=== PATIENT | female | born 1960 | race Two or more races ===

== ENCOUNTER 2019-09-13 12:47 | Inpatient (IN) | payer MEDICAID ==
[2019-09-13] VITALS (7 sets, daily range): BP systolic 105–132; BP diastolic 55–76
[~2019-09-13] VITALS: Ht 162.6 cm; Wt 74.8 kg
[~2019-09-13 12:47] MED LIST: MECLIZINE HCL25 MG ORAL; MYLANTA MAXIMU355 ML PO; OMEPRAZOLE20 M2 ORAL; ONDANSETRON ODT4 MG BC
--- NOTE | 2019-09-13 13:01 | NUR ---
ED Nurse Note: PT FROM HOME CAME IN DUE TO FEVER 102.6 F ART HOME WITH ABD PAIN, EARACHE AND SORE THROAT X 2 DAYS. AAO X4, AMBULATORY , ABLE TO SPEAK IN FULL SENTENCES WITH NO RESPIRATORY DISTRESS. HR 130 IN TRIAGE.
[2019-09-13] MEDS ORDERED: Ketorolac 30mg Inj IV ONE (13:15)
[2019-09-13] MEDS ORDERED: Dexamethasone 4mg/ml vial IVP ONE (13:15)
[2019-09-13] MEDS ORDERED: Omnipaque-300 100ml vial INJ ONE (13:15)
--- NOTE | 2019-09-13 13:23 | Emergency Room Report ---
History of Present Illness General Chief Complaint: Fever Source: Patient (Anaya Alvarez DO) Present Illness HPI Patient presents with complaints of sore throat fever Upon arrival is found to be tachycardic and febrile Patient appears to have been here about a month ago with some complaints of dizziness she reports that she still has dizziness at times She also complains of increased pain with swallowing Denies any change in voice denies any vomiting or diarrhea Denies any visual changes Denies any recent trauma (Anaya Alvarez DO) Allergies: Coded Allergies: No Known Allergies (Unverified , 08/24/19) Patient History Past Medical History: see triage record Reviewed Nursing Documentation: PMH: Agreed; PSxH: Agreed (Anaya Alvarez DO) Nursing Documentation-PMH Past Medical History: No Stated History Hx Gastrointestinal Problems: Yes - H. PYLORI INFECTION (Anaya Alvarez DO) Review of Systems All Other Systems: negative except mentioned in HPI (Anaya Alvarez DO) Physical Exam Vital Signs Date Time Temp Pulse Resp B/P (MAP) Pulse Ox O2 Delivery O2 Flow Rate FiO2 09/13/19 12:51 102.6 130 20 123/66 (85) 98 Room Air Sp02 EP Interpretation: reviewed, normal General Appearance: well appearing, no apparent distress Head: normocephalic, atraumatic Eyes: bilateral eye PERRL, bilateral eye EOMI ENT: hearing grossly normal, pharyngeal erythema Neck: full range of motion, supple Respiratory: lungs clear, no respiratory distress, no retraction Cardiovascular #1: tachycardia Gastrointestinal: non tender, soft Genitourinary: no CVA tenderness Musculoskeletal: normal inspection Neurologic: alert, oriented x3 Psychiatric: normal inspection Skin: no rash Lymphatic: normal inspection (Anaya Alvarez DO) Medical Decision Making Diagnostic Impression: Primary Impression: Sepsis Additional Impressions: Fever Pharyngitis ER Course Multiple differentials and consideration including but not limited to retropharyngeal abscess Peritonsillar abscess, pharyngitis Mastoiditis CT imaging does not show any acute process patient was Initially tachycardic has elevated white blood cell count has improved however still uncomfortable and therefore will require further inpatient care Labs Test 09/13/19 13:25 White Blood Count 16.0 K/UL (4.8-10.8) Red Blood Count 4.35 M/UL (4.20-5.40) Hemoglobin 13.4 G/DL (12.0-16.0) Hematocrit 37.9 % (37.0-47.0) Mean Corpuscular Volume 87 FL (80-99) Mean Corpuscular Hemoglobin 30.9 PG (27.0-31.0) Mean Corpuscular Hemoglobin Concent 35.5 G/DL (32.0-36.0) Red Cell Distribution Width 11.1 % (11.6-14.8) Platelet Count 184 K/UL (150-450) Mean Platelet Volume 7.3 FL (6.5-10.1) Neutrophils (%) (Auto) % (45.0-75.0) Lymphocytes (%) (Auto) % (20.0-45.0) Monocytes (%) (Auto) % (1.0-10.0) Eosinophils (%) (Auto) % (0.0-3.0) Basophils (%) (Auto) % (0.0-2.0) Sodium Level 139 MMOL/L (136-145) Potassium Level 3.4 MMOL/L (3.5-5.1) Chloride Level 101 MMOL/L (98-107) Carbon Dioxide Level 24 MMOL/L (21-32) Anion Gap 14 mmol/L (5-15) Blood Urea Nitrogen 13 mg/dL (7-18) Creatinine 0.8 MG/DL (0.55-1.30) Estimat Glomerular Filtration Rate > 60 mL/min (>60) Glucose Level 140 MG/DL (74-106) Calcium Level 8.7 MG/DL (8.5-10.1) (Anaya Alvarez DO) Rhythm Strip Diag. Results EP Interpretation: yes Rate: 110 Rhythm: no PVC's, no ectopy, other - Sinus tach (Anaya Alvaerz DO) Chest X-Ray Diagnostic Results Chest X-Ray Diagnostic Results : Chest X-Ray Ordered: Yes # of Views/Limited/Complete: 1 View Indication: Chest Pain EP Interpretation: Yes Interpretation: no consolidation, no effusion, no pneumothorax Impression: No acute disease Electronically Signed by: Anaya Alvarez DO (Anaya Alvarez DO) CT/MRI/US Diagnostic Results CT/MRI/US Diagnostic Results : Impression CT neckImpression: Tonsillar swelling. No evidence of abscess (Anaya Alvarez DO) Last Vital Signs Date Time Temp Pulse Resp B/P (MAP) Pulse Ox O2 Delivery O2 Flow Rate FiO2 09/13/19 12:51 102.6 130 20 123/66 (85) 98 Room Air Status: improved (Anaya Alvarez DO) Reevaluation Time: 17:25 Reevaluation Impression Assumed care of the patient from the previous provider approximately 1430 Briefly, this is a 59-year-old female coming in for evaluation of throat pain and swelling, fever. She was tachycardic on arrival into the 130s and remained slightly tachycardic now. At the time of signout we are awaiting CT scan to evaluate for peritonsillar and retropharyngeal abscess. No evidence of abscess was identified. Radiologist did no tonsillar swelling and some maxillary sinus disease. White count is elevated with a neutrophil predominance. Patient received Decadron and Toradol. Will give antibiotics and admit the patient for further care (Ayush Drake MD) Disposition: ADMITTED INPATIENT Condition: Serious Scripts Cefuroxime Axetil* (CEFUROXIME*) 250 Mg Tablet 250 MG PO Q12HR for 10 Days, #20 TAB Prov: Smith Mcgregor MD 09/16/19 Anaya Alvarez DO Sep 13, 2019 13:23 Ayush Drake MD Sep 13, 2019 17:27
--- NOTE | 2019-09-13 13:40 | NUR ---
ED Nurse Note: PT TAKEN TO CT AND STABLE.
[2019-09-13 13:51] LABS: HEMATOCRIT 37.9 % (37.0-47.0); HEMOGLOBIN 13.4 G/DL (12.0-16.0); MEAN CORPUSCULAR VOLUME 87 FL (80-99); PLATELET COUNT 184 K/UL (150-450); RED BLOOD COUNT 4.35 M/UL (4.20-5.40); RED CELL DISTRIBUTION WIDTH 11.1 % (11.6-14.8)
[2019-09-13 13:59] LABS: ANION GAP 14 mmol/L (5-15); BLOOD UREA NITROGEN 13 mg/dL (7-18); CALCIUM 8.7 MG/DL (8.5-10.1); CARBON DIOXIDE 24 MMOL/L (21-32); CHLORIDE 101 MMOL/L (98-107); CREATININE 0.8 MG/DL (0.55-1.30); POTASSIUM 3.4 MMOL/L (3.5-5.1); SODIUM 139 MMOL/L (136-145)
--- NOTE | 2019-09-13 14:08 | Diagnostic Imaging Report ---
Indications: Vertigo Technique: Spiral acquisitions obtained through the brain. Angled axial and coronal 5 x 5 mm slices were reconstructed. Total dose length product 1179 mGycm. CTDI vol(s) 53 mGy. Dose reduction achieved using automated exposure control Comparison: None. Findings: No acute intracranial hemorrhage or edema. No mass effect nor midline shift. Normal white differentiation. Visualized orbits and sinuses are unremarkable. The mastoids are clear. The calvarium is intact. Pantoja-white differentiation is normal. The visualized orbits are unremarkable. There is right maxillary sinus mucosal disease. Impression: Negative. No evidence of acute intracranial bleed or mass effect. Minimal right maxillary sinus disease incidentally noted. The CT scanner at [facility] is accredited by the [employer] and the scans are performed using protocols designed to limit radiation exposure to as low as reasonably achievable to attain images of sufficient resolution adequate for diagnostic evaluation.
[2019-09-13 14:13] LABS: ALANINE AMINOTRANSFERASE 30 U/L (12-78); ALBUMIN 3.4 G/DL (3.4-5.0); ALBUMIN/GLOBULIN RATIO 0.9 (1.0-2.7); ALKALINE PHOSPHATASE 90 U/L (46-116); ASPARTATE AMINO TRANSFERASE 32 U/L (15-37); BILIRUBIN,TOTAL 0.7 MG/DL (0.2-1.0); CKMB < 0.5 NG/ML (0.0-3.6); CREATINE KINASE 61 U/L (26-308)
--- NOTE | 2019-09-13 15:01 | Diagnostic Imaging Report ---
Indication: Chest Technique: One view of the chest Comparison: none Findings: The heart size is upper limits of normal. The aorta is tortuous. The lungs and pleural spaces are clear. Impression: No acute process
--- NOTE | 2019-09-13 15:15 | Diagnostic Imaging Report ---
Indication: Ear pain, swelling, vertigo, sore throat and fever Technique: IV administration nonionic contrast. Spiral acquisitions obtained through the neck.. Multiplanar reconstructions were generated. Total dose length product 261 mGycm. CTDIvol(s) 7 mGy. Dose reduction achieved using automated exposure control Comparison: none Findings: There is symmetric bilateral hypertrophy of the tonsillar pillars. There is mild prominence of the adenoids. No focal fluid collection to suggest abscess. No prevertebral soft tissue swelling. Other than the tonsillar abnormality, otherwise unremarkable nasopharynx, oropharynx, hypopharynx, and larynx. The trachea and upper lungs are unremarkable. No significant swelling and subcutaneous fat. There is minimal right maxillary sinus mucosal thickening. The sinuses are otherwise clear. No cervical mass or adenopathy. The salivary glands are unremarkable. Visualized intracranial structures are unremarkable. The bones are unremarkable. There is evidence of prior multiple tooth extractions. The existing dentition is intact. The vascular structures are unremarkable. The included lung apices are clear Impression: Tonsillar swelling. No evidence of abscess Incidental finding minimal right maxillary sinus disease The CT scans at [facility] are performed using protocols designed to limit radiation exposure to as low as reasonably achievable to attain images of sufficient resolution adequate for diagnostic evaluation.
--- NOTE | 2019-09-13 17:18 | NUR ---
ED Nurse Note: PT SLEEPING ON GURNEY WITH NO DISTRESS. SINUS TACH ON POWER STATION OPERATOR AT 87 HR.
[2019-09-13] MEDS ORDERED: Piperacillin/Tazobactam 3.375 GM in NS 110 ML IVPB ONE (19:00)
--- NOTE | 2019-09-13 19:17 | NUR ---
HAND-OFF: Report given to MANDIE SANCHEZ.
--- NOTE | 2019-09-13 19:17 | NUR ---
ED Nurse Note: Pt resting in bed, VSS, no s/s of distress noted. Medications administered, pt tolerated well. no adverse reactions
[2019-09-13] MEDS ORDERED: Albuterol/Ipratropium 3ml neb HHN PRN (20:45)
[2019-09-13] MEDS ORDERED: Miralax 17gm pkt ORAL PRN (20:45)
[2019-09-13] MEDS ORDERED: Nitroglycerin Subl 0.4mg tab SL PRN (20:45)
--- NOTE | 2019-09-13 21:30 | NUR ---
ED Nurse Note: Pt resting in bed, no s/s of distress noted, vss. Pt has and son at bedside. awaiting transfer
[2019-09-13] MEDS: Heparin 5000 units/ml inj SUBQ SCH (23:18)
--- NOTE | 2019-09-13 23:45 | NUR ---
ED Nurse Note: Pt resting in bed, vss, no s/s of distress noted. Pts and son no longer at bedside
[2019-09-14] VITALS (9 sets, daily range): BP systolic 101–121; BP diastolic 50–76
[2019-09-14] MEDS ORDERED: Vancomycin 1 GM in D5W 275 ML IV SCH (00:30)
[2019-09-14] MEDS: Cefepime HCl 2 GM in D5W 110 ML IV SCH ×2 (01:29→14:06)
--- NOTE | 2019-09-14 01:29 | NUR ---
ED Nurse Note: medications administered, pt tolerated well. no s/s of distress noted. Pt sleeping
[2019-09-14] MEDS ORDERED: Vancomycin 1.5gm x1 (Pts>70kg) IVPB SCH ×2 (03:00)
[2019-09-14 03:21] LABS: APPEARANCE,URINE CLEAR; BILIRUBIN, URINE NEGATIVE (NEGATIVE); COLOR,URINE PALE YELLOW; GLUCOSE, URINE (UA) NEGATIVE (NEGATIVE); HEMATOCRIT 36.4 % (37.0-47.0); HEMOGLOBIN 13.1 G/DL (12.0-16.0); KETONES,URINE 2+ (NEGATIVE); LEUKOCYTE ESTERASE ,URINE NEGATIVE (NEGATIVE); MEAN CORPUSCULAR VOLUME 86 FL (80-99); NITRITE,URINE NEGATIVE (NEGATIVE); PH,URINE 5 (4.5-8.0); PLATELET COUNT 165 K/UL (150-450); PROTEIN,URINE 1+ (NEGATIVE); RED BLOOD COUNT 4.21 M/UL (4.20-5.40); RED CELL DISTRIBUTION WIDTH 10.8 % (11.6-14.8); UROBILINOGEN,URINE NORMAL MG/DL (0.0-1.0); WHITE BLOOD COUNT 18.7 K/UL (4.8-10.8)
--- NOTE | 2019-09-14 03:24 | NUR ---
ED Nurse Note: all medications administered, no s/s of distress noted. no adverse reactions. pt tolerated well. pt repeat bloodwork and urine sent to lab
[2019-09-14 03:37] LABS: ALANINE AMINOTRANSFERASE 25 U/L (12-78); ALBUMIN 2.7 G/DL (3.4-5.0); ALBUMIN/GLOBULIN RATIO 0.6 (1.0-2.7); ALKALINE PHOSPHATASE 82 U/L (46-116); ANION GAP 9 mmol/L (5-15); ASPARTATE AMINO TRANSFERASE 29 U/L (15-37); BILIRUBIN,TOTAL 0.4 MG/DL (0.2-1.0); BLOOD UREA NITROGEN 13 mg/dL (7-18); CALCIUM 8.6 MG/DL (8.5-10.1); CARBON DIOXIDE 25 MMOL/L (21-32); CHLORIDE 105 MMOL/L (98-107); CREATININE 0.7 MG/DL (0.55-1.30); POTASSIUM 3.6 MMOL/L (3.5-5.1); SODIUM 139 MMOL/L (136-145)
--- NOTE | 2019-09-14 04:30 | NUR ---
ED Nurse Note: xray at bedside
--- NOTE | 2019-09-14 05:45 | NUR ---
ED Nurse Note: pts at bedside
--- NOTE | 2019-09-14 05:53 | NUR ---
ED Nurse Note: Pt sleeping in bed; VSS no s/s of distress noted.
--- NOTE | 2019-09-14 07:14 | NUR ---
ED Nurse Note: Report given to Brandin Neff
--- NOTE | 2019-09-14 07:40 | NUR ---
ED Nurse Note: Received pt on bed, awake, AOX4, able to verbalize her needs and follow commands. Pt's VSS, on RA, NAD, denies pain at this time.
[2019-09-14] MEDS: Heparin 5000 units/ml inj SUBQ SCH ×2 (08:59→20:58)
--- NOTE | 2019-09-14 11:45 | NUR ---
ED Nurse Note: pt. is awake and alert. no s/s of acute distress noted at this time. pt. is smiling and stated she is ok. continuous cardiac monitoring maintained
--- NOTE | 2019-09-14 13:30 | NUR ---
ED Nurse Note: Pt verbalized need to urinate, able to ambulate with steady gait, assisted by daughter going to restroom; NAD.
--- NOTE | 2019-09-14 14:00 | NUR ---
ED Nurse Note: Pt's VSS, on RA, NAD; daughter on bedside.
[2019-09-14] MEDS ORDERED: [UNRECOGNIZED DRUG - OTHER] IVPB SCH (15:00)
[2019-09-14] MEDS ORDERED: VANCOMYCIN IVPB SCH (15:00)
--- NOTE | 2019-09-14 15:50 | NUR ---
ED Nurse Note: Called pharmacy; will rescheduled [facility]. Reported situation to charge nurse.
--- NOTE | 2019-09-14 16:29 | Diagnostic Imaging Report ---
Indication: Shortness of breath Technique: One view of the chest Comparison: 09/13/2019 Findings: No acute infiltrates, effusions, or congestion. Tortuous ectatic aorta. Normal heart size. Upper mediastinum unremarkable. No significant change Impression: No acute process.
--- NOTE | 2019-09-14 17:05 | NUR ---
TRANSFER TO FLOOR: Patient transferred to Telemetry as ordered, per Dr. Huang. Report given to Kandi SANCHEZ. Belongings given to receiving nurse. Family and or S/O informed of transfer.
--- NOTE | 2019-09-14 17:20 | NUR ---
NURSE NOTES: Received patient from Aishwarya Isaacs. Belongings review. Plan of care discussed, verbalized understanding. IV lines are intact, Patient is alert and oriented x 4. Patient is not on distress at this time. Safety is on place, call light within reach, bed placed on low position. Will continue to monitor.
--- NOTE | 2019-09-14 18:42 | History & Physical ---
History and Physical History & Physicial Dictated for Int Med-DR Huang no. [id number] Smith Mcgregor MD Sep 14, 2019 18:42
--- NOTE | 2019-09-14 19:21 | NUR ---
NURSE NOTES: RECEIVED PATIENT RESTING IN BED, NO COMPLAINTS OF PAIN AT THIS TIME. FALL PRECAUTIONS IN PLACE: CALL LIGHT AND BEDSIDE TABLE WITHIN REACH, BED IN LOW POSITION AND BED ALARM ON. FAMILY AT BEDSIDE. PLAN OF CARE REVIEWED.
--- NOTE | 2019-09-14 19:45 | History and Physical Report ---
DATE OF ADMISSION: 09/13/2019 CHIEF COMPLAINT: The patient is a 59-year-old female, who presents with a chief complaint of fever, chills, and sore throat. HISTORY OF PRESENT ILLNESS: Began on Thursday, September 12, 2019. The patient began to experience fevers and chills. The patient also began to have a sore throat. The patient complains of bilateral ear congestion. The patient also had some dizziness. The patient states she was admitted to [facility] in July of 2019 for vertigo, however this medical record is not available. The patient presented to [place] emergency room. The patient was found to have fevers to 102.[address] scan of the neck revealed tonsillitis. The patient is admitted with fever, chills, and tonsillitis. PAST MEDICAL HISTORY: Significant for, 1. Gastritis. 2. Helicobacter pylori positive, which was treated in the past. PAST SURGICAL HISTORY: The patient denies. REVIEW OF SYSTEMS: CONSTITUTIONAL: The patient denies weight loss or weight gain. The patient complains of fevers and chills as above. HEENT: The patient complains of throat pain as above. The patient complains of ear congestion as above. CARDIOVASCULAR: The patient denies palpitations or chest pain. CHEST: The patient denies wheeze or shortness of breath. ABDOMINAL: The patient denies nausea, vomiting, diarrhea, or constipation. GENITOURINARY: The patient denies dysuria or increased frequency of urination. NEUROMUSCULAR: The patient denies seizures or generalized weakness. CURRENT MEDICATIONS: 1. Meclizine 25 mg one tablet p.o. 3 times daily p.r.n. 2. Omeprazole 20 mg p.o. daily. ALLERGIES: No known drug allergies. SOCIAL HISTORY: The patient is and lives with her . 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 The patient denies tobacco or alcohol use. PHYSICAL EXAMINATION: VITAL SIGNS: Temperature max 102.6 degrees Fahrenheit, pulse 100 to 130, respiratory rate 20, and blood pressure 123/66. GENERAL: The patient is a well-developed and well-nourished female, in no apparent distress. HEENT: Eyes, pupils are equal and responsive to light and accommodation. Extraocular movements are intact. NECK: Supple without lymphadenopathy. CHEST: Lungs are clear to auscultation bilaterally without wheezes or rales. CARDIOVASCULAR: Regular rhythm and rate. S1 and S2 are normal without murmurs, rubs, or gallops. ABDOMEN: Soft, nontender, and nondistended. Positive bowel sounds. No evidence of hepatosplenomegaly. Currently, no rebound or guarding noted. EXTREMITIES: Negative for clubbing, cyanosis, or edema. RECTAL/GENITAL: Not performed. NEUROLOGIC: Cranial nerves II to XII are grossly intact without focal deficits. Motor strength is 5/5 bilaterally. Deep tendon reflexes are 2+ plantar. LABORATORY STUDIES: An influenza swab was negative for influenza A and B. WBC 16.0, hemoglobin 13.4, hematocrit 37.9, and platelets 184,000. Sodium 139, potassium 3.4, chloride 101, CO2 24, BUN 13, creatinine 0.8, and glucose 140. A CT scan of the neck was reported as tonsillar swelling, otherwise no acute disease. ASSESSMENT: This is a 59-year-old female. 1. Fever. 2. Pharyngitis. 3. Tonsillitis. 4. History of gastritis. 5. Vertigo. TREATMENT: 1. Fever/pharyngitis/tonsillitis. A throat culture is pending. An influenza swab was negative as above. The patient has been started empirically on vancomycin and cefepime. Await results of throat swab. 2. Gastritis. The patient is status post treatment for Helicobacter pylori. 3. Vertigo. Continue meclizine as above. Smtih Mcgregor M.D. DR: HELENE JOB#: [id number] CC:
[2019-09-15] VITALS: BP 123/67
[2019-09-15] MEDS: Cefepime HCl 2 GM in D5W 110 ML IV SCH ×2 (01:40→13:22)
[2019-09-15] MEDS: Vancomycin 1.25gm/NS Premix IVPB SCH ×2 (02:42→15:16)
--- NOTE | 2019-09-15 07:20 | NUR ---
HAND-OFF: Report given to Sreedhar GOODE RN. PATIENT RESTING IN BED, NO SIGNS OF DISTRESS NOTED.
--- NOTE | 2019-09-15 07:51 | NUR ---
NURSE NOTES: Received patient from Brandin Stinson. Patient is awake resting comfortably in bed. Family sitting at bedside. Patient has no complain of pain or discomfort at this time. Left forearm peripheral IV CDI. Fall precautions in place. call senior within patients reach. will follow.
[2019-09-15 08:00] VITALS: BP 119/71
[2019-09-15] MEDS: Heparin 5000 units/ml inj SUBQ SCH ×2 (08:47→21:00)
[2019-09-15 09:24] LABS: BASOPHILS % (AUTO) 0.4 % (0.0-2.0); EOSINOPHILS % (AUTO) 0.2 % (0.0-3.0); HEMATOCRIT 35.5 % (37.0-47.0); HEMOGLOBIN 12.3 G/DL (12.0-16.0); LYMPHOCYTES % (AUTO) 22.9 % (20.0-45.0); MEAN CORPUSCULAR VOLUME 89 FL (80-99); MONOCYTES % (AUTO) 6.6 % (1.0-10.0); PLATELET COUNT 165 K/UL (150-450); RED BLOOD COUNT 4.01 M/UL (4.20-5.40); RED CELL DISTRIBUTION WIDTH 11.2 % (11.6-14.8); WHITE BLOOD COUNT 12.9 K/UL (4.8-10.8)
[2019-09-15 09:37] LABS: ANION GAP 8 mmol/L (5-15); BLOOD UREA NITROGEN 14 mg/dL (7-18); CALCIUM 8.7 MG/DL (8.5-10.1); CARBON DIOXIDE 27 MMOL/L (21-32); CHLORIDE 110 MMOL/L (98-107); CREATININE 0.7 MG/DL (0.55-1.30); POTASSIUM 3.5 MMOL/L (3.5-5.1); SODIUM 145 MMOL/L (136-145)
[2019-09-15 12:00] VITALS: BP 113/66
[2019-09-15] MEDS ORDERED: Tubing IV Secondary IV ONE (15:21)
[2019-09-15 16:00] VITALS: BP 114/76
--- NOTE | 2019-09-15 16:27 | Internal Med Progress Note ---
Subjective Date of Service: Sep 15, 2019 Physician Name Smith Mcgregor Attending Physician Isidro Huang MD Current Medications Medications (Trade) Dose Ordered Sig/Ramy Route PRN Reason Start Time Stop Time Status Last Admin Dose Admin Acetaminophen (Tylenol) 650 mg Q4H PRN ORAL T>100.5 09/13/19 20:45 10/13/19 20:44 Albuterol/ Ipratropium (Albuterol/ Ipratropium) 3 ml Q4H PRN HHN Shortness of Breath 09/13/19 20:45 09/18/19 20:44 Cefepime HCl 2 gm/ Dextrose 110 ml @ 220 mls/hr Q12H IV 09/14/19 02:00 09/21/19 01:59 09/15/19 13:22 Heparin Sodium (Porcine) (Heparin 5000 units/ml) 5,000 units EVERY 12 HOURS SUBQ 09/13/19 21:00 10/13/19 20:59 09/15/19 08:47 Nitroglycerin (Ntg) 0.4 mg Q5MIN X 3 DOSES PRN SL Prn Chest Pain 09/13/19 20:45 10/13/19 20:44 Ondansetron HCl (Zofran) 4 mg Q6H PRN IVP Nausea & Vomiting 09/13/19 20:45 10/13/19 20:44 09/13/19 23:34 Polyethylene Glycol (Miralax) 17 gm DAILYPRN PRN ORAL Constipation 09/13/19 20:45 10/13/19 20:44 Temazepam (Restoril) 15 mg HSPRN PRN ORAL Insomnia 09/13/19 21:00 09/20/19 20:59 Vancomycin HCl (Vanco rx to dose) 1 ea DAILY PRN MISC Per rx protocol 09/14/19 01:30 10/14/19 01:29 Vancomycin/Sodium Chloride 275 ml @ 183.333 mls/hr Q12HR@0300,1500 IVPB 09/15/19 03:00 09/20/19 02:59 09/15/19 15:16 Allergies: Coded Allergies: No Known Allergies (Unverified , 08/24/19) ROS Limited/Unobtainable: No Constitutional: Reports: no symptoms HEENT: Reports: throat pain Cardiovascular: Reports: no symptoms Respiratory: Reports: no symptoms Gastrointestinal/Abdominal: Reports: no symptoms Genitourinary: Reports: no symptoms Neurologic/Psychiatric: Reports: no symptoms Subjective 59 YO F admitted with sore throat and fever. Now tonsillitis. Cover for Int David-DR Huang Objective Last Vital Signs Date Time Temp Pulse Resp B/P (MAP) Pulse Ox O2 Delivery O2 Flow Rate FiO2 09/15/19 12:00 68 09/15/19 12:00 96.7 18 113/66 (82) 96 09/15/19 09:00 Room Air Laboratory Tests Test 09/15/19 07:37 09/15/19 14:05 White Blood Count 12.9 K/UL (4.8-10.8) H Red Blood Count 4.01 M/UL (4.20-5.40) L Hemoglobin 12.3 G/DL (12.0-16.0) Hematocrit 35.5 % (37.0-47.0) L Mean Corpuscular Volume 89 FL (80-99) Mean Corpuscular Hemoglobin 30.7 PG (27.0-31.0) Mean Corpuscular Hemoglobin Concent 34.7 G/DL (32.0-36.0) Red Cell Distribution Width 11.2 % (11.6-14.8) L Platelet Count 165 K/UL (150-450) Mean Platelet Volume 7.7 FL (6.5-10.1) Neutrophils (%) (Auto) 70.0 % (45.0-75.0) Lymphocytes (%) (Auto) 22.9 % (20.0-45.0) Monocytes (%) (Auto) 6.6 % (1.0-10.0) Eosinophils (%) (Auto) 0.2 % (0.0-3.0) Basophils (%) (Auto) 0.4 % (0.0-2.0) Sodium Level 145 MMOL/L (136-145) Potassium Level 3.5 MMOL/L (3.5-5.1) Chloride Level 110 MMOL/L (98-107) H Carbon Dioxide Level 27 MMOL/L (21-32) Anion Gap 8 mmol/L (5-15) Blood Urea Nitrogen 14 mg/dL (7-18) Creatinine 0.7 MG/DL (0.55-1.30) Estimat Glomerular Filtration Rate > 60 mL/min (>60) Glucose Level 110 MG/DL (74-106) #H Calcium Level 8.7 MG/DL (8.5-10.1) Vancomycin Level Trough 15.0 ug/mL (5.0-12.0) H Microbiology Date/Time Source Procedure Growth Status 09/13/19 13:25 Blood Blood Culture - Preliminary NO GROWTH AFTER 24 HOURS Resulted 09/13/19 13:00 Blood Blood Culture - Preliminary NO GROWTH AFTER 24 HOURS Resulted 09/13/19 14:00 Nasal Nares - Final Complete 09/13/19 14:00 Nasal Nares - Final Complete 09/14/19 03:11 Indwelling Cath Urine Culture - Preliminary NO GROWTH AFTER 24 HOURS Resulted Intake and Output 09/14/19 09/15/19 19:00 07:00 Intake Total 110 ml 505.000 ml Balance 110 ml 505.000 ml Intake Oral 120 ml IV Total 110 ml 385.000 ml # Voids 1 2 Objective PHYSICAL EXAMINATION: GENERAL: The patient is a well-developed and well-nourished female, in no apparent distress. HEENT: Eyes, pupils are equal and responsive to light and accommodation. Extraocular movements are intact. NECK: Supple without lymphadenopathy. CHEST: Lungs are clear to auscultation bilaterally without wheezes or rales. CARDIOVASCULAR: Regular rhythm and rate. S1 and S2 are normal without murmurs, rubs, or gallops. ABDOMEN: Soft, nontender, and nondistended. Positive bowel sounds. No evidence of hepatosplenomegaly. Currently, no rebound or guarding noted. EXTREMITIES: Negative for clubbing, cyanosis, or edema. RECTAL/GENITAL: Not performed. NEUROLOGIC: Cranial nerves II to XII are grossly intact without focal deficits. Motor strength is 5/5 bilaterally. Deep tendon reflexes are 2+ plantar. Assessment/Plan Assessment/Plan ASSESSMENT: This is a 59-year-old female. 1. Fever. 2. Pharyngitis. 3. Tonsillitis. 4. History of gastritis. 5. Vertigo. TREATMENT: 1. Fever/pharyngitis/tonsillitis. A throat culture is pending. An influenza swab was negative as above. The patient has been started empirically on vancomycin and cefepime. Await results of throat swab. 2. Gastritis. The patient is status post treatment for Helicobacter pylori. 3. Vertigo. Continue meclizine as above. Smith Mcgregor MD Sep 15, 2019 16:27
--- NOTE | 2019-09-15 19:02 | NUR ---
HAND-OFF: Report given to Brandin Suresh. Plan of care endorsed.
--- NOTE | 2019-09-15 19:30 | NUR ---
NURSE NOTES: Receive report from DANIEL Fernandez. Patient is in bed, awake, alert, and responsive. Breathing regular and unlabored with no s/s of SOB noted at this time. Patient is primarily Icelandic speaking, but is able to make needs known. Family is at bedside. Patient denies any pain or discomfort at this time. IV access is on the L hand, 22G, patent, intact, and saline locked. Bed remains in the lowest position, breaks engaged. and call light is within reach at all times. All other needs attended to, patient remains stable, will continue to monitor.
[2019-09-15 20:00] VITALS: BP 122/69
[2019-09-16] VITALS: BP 118/74
[2019-09-16] MEDS: Cefepime HCl 2 GM in D5W 110 ML IV SCH (01:38)
[2019-09-16] MEDS: Vancomycin 1.25gm/NS Premix IVPB SCH (03:00)
[2019-09-16 04:00] VITALS: BP 134/83
--- NOTE | 2019-09-16 06:58 | NUR ---
HAND-OFF: Report given to DANIEL Fernandez. Patient in stable condition.
--- NOTE | 2019-09-16 07:11 | NUR ---
NURSE NOTES: Received patient from Brandin Suresh. Patient is sleeping comfortably in bed. No signs and symptoms of distress. Fall precautions in place. Call senior within patients reach. will follow.
[2019-09-16 08:00] VITALS: BP 121/70
[2019-09-16] MEDS: Heparin 5000 units/ml inj SUBQ SCH (08:41)
[2019-09-16 08:45] LABS: BASOPHILS % (AUTO) 0.9 % (0.0-2.0); EOSINOPHILS % (AUTO) 1.7 % (0.0-3.0); HEMATOCRIT 33.5 % (37.0-47.0); HEMOGLOBIN 11.8 G/DL (12.0-16.0); LYMPHOCYTES % (AUTO) 40.6 % (20.0-45.0); MEAN CORPUSCULAR VOLUME 88 FL (80-99); MONOCYTES % (AUTO) 9.6 % (1.0-10.0); NEUTROPHILS % (AUTO) 47.3 % (45.0-75.0); PLATELET COUNT 164 K/UL (150-450); RED BLOOD COUNT 3.83 M/UL (4.20-5.40); RED CELL DISTRIBUTION WIDTH 10.8 % (11.6-14.8); WHITE BLOOD COUNT 7.2 K/UL (4.8-10.8)
[2019-09-16 08:58] LABS: ANION GAP 12 mmol/L (5-15); BLOOD UREA NITROGEN 9 mg/dL (7-18); CALCIUM 8.6 MG/DL (8.5-10.1); CARBON DIOXIDE 23 MMOL/L (21-32); CHLORIDE 108 MMOL/L (98-107); CREATININE 0.7 MG/DL (0.55-1.30); POTASSIUM 3.4 MMOL/L (3.5-5.1); SODIUM 143 MMOL/L (136-145)
--- NOTE | 2019-09-16 09:22 | NUR ---
NURSE NOTES: Message left to Doctor Sal re: potassium level of 3.4. Awaiting response. Will follow.
[2019-09-16 11:59] VITALS: BP 117/57
--- NOTE | 2019-09-16 13:59 | Internal Med Progress Note ---
Subjective Date of Service: Sep 16, 2019 Physician Name Smith Mcgregor Attending Physician Isidro Huang MD Current Medications Medications (Trade) Dose Ordered Sig/Ramy Route PRN Reason Start Time Stop Time Status Last Admin Dose Admin Acetaminophen (Tylenol) 650 mg Q4H PRN ORAL T>100.5 09/13/19 20:45 10/13/19 20:44 09/15/19 20:58 Albuterol/ Ipratropium (Albuterol/ Ipratropium) 3 ml Q4H PRN HHN Shortness of Breath 09/13/19 20:45 09/18/19 20:44 Cefepime HCl 2 gm/ Dextrose 110 ml @ 220 mls/hr Q12H IV 09/14/19 02:00 09/21/19 01:59 09/16/19 01:38 Heparin Sodium (Porcine) (Heparin 5000 units/ml) 5,000 units EVERY 12 HOURS SUBQ 09/13/19 21:00 10/13/19 20:59 09/16/19 08:41 Nitroglycerin (Ntg) 0.4 mg Q5MIN X 3 DOSES PRN SL Prn Chest Pain 09/13/19 20:45 10/13/19 20:44 Ondansetron HCl (Zofran) 4 mg Q6H PRN IVP Nausea & Vomiting 09/13/19 20:45 10/13/19 20:44 09/13/19 23:34 Polyethylene Glycol (Miralax) 17 gm DAILYPRN PRN ORAL Constipation 09/13/19 20:45 10/13/19 20:44 Temazepam (Restoril) 15 mg HSPRN PRN ORAL Insomnia 09/13/19 21:00 09/20/19 20:59 Vancomycin HCl (Vanco rx to dose) 1 ea DAILY PRN MISC Per rx protocol 09/14/19 01:30 10/14/19 01:29 Vancomycin/Sodium Chloride 275 ml @ 183.333 mls/hr Q12HR@0300,1500 IVPB 09/15/19 03:00 09/20/19 02:59 09/16/19 03:00 Allergies: Coded Allergies: No Known Allergies (Unverified , 08/24/19) ROS Limited/Unobtainable: No Constitutional: Reports: no symptoms HEENT: Reports: no symptoms Cardiovascular: Reports: no symptoms Respiratory: Reports: no symptoms Gastrointestinal/Abdominal: Reports: no symptoms Genitourinary: Reports: no symptoms Neurologic/Psychiatric: Reports: no symptoms Subjective 59 YO F admitted with sore throat and fever. Now tonsillitis. Cover for Int David-DR Huang Objective Last Vital Signs Date Time Temp Pulse Resp B/P (MAP) Pulse Ox O2 Delivery O2 Flow Rate FiO2 09/16/19 12:00 61 09/16/19 11:59 97.9 18 117/57 (77) 97 09/16/19 09:00 Room Air Laboratory Tests Test 09/15/19 14:05 09/16/19 05:52 Vancomycin Level Trough 15.0 ug/mL (5.0-12.0) H White Blood Count 7.2 K/UL (4.8-10.8) Red Blood Count 3.83 M/UL (4.20-5.40) L Hemoglobin 11.8 G/DL (12.0-16.0) L Hematocrit 33.5 % (37.0-47.0) L Mean Corpuscular Volume 88 FL (80-99) Mean Corpuscular Hemoglobin 30.7 PG (27.0-31.0) Mean Corpuscular Hemoglobin Concent 35.0 G/DL (32.0-36.0) Red Cell Distribution Width 10.8 % (11.6-14.8) L Platelet Count 164 K/UL (150-450) Mean Platelet Volume 7.3 FL (6.5-10.1) Neutrophils (%) (Auto) 47.3 % (45.0-75.0) Lymphocytes (%) (Auto) 40.6 % (20.0-45.0) Monocytes (%) (Auto) 9.6 % (1.0-10.0) Eosinophils (%) (Auto) 1.7 % (0.0-3.0) Basophils (%) (Auto) 0.9 % (0.0-2.0) Sodium Level 143 MMOL/L (136-145) Potassium Level 3.4 MMOL/L (3.5-5.1) L Chloride Level 108 MMOL/L (98-107) H Carbon Dioxide Level 23 MMOL/L (21-32) Anion Gap 12 mmol/L (5-15) Blood Urea Nitrogen 9 mg/dL (7-18) Creatinine 0.7 MG/DL (0.55-1.30) Estimat Glomerular Filtration Rate > 60 mL/min (>60) Glucose Level 83 MG/DL (74-106) Calcium Level 8.6 MG/DL (8.5-10.1) Microbiology Date/Time Source Procedure Growth Status 09/14/19 21:00 Throat Throat Culture - Preliminary Usual Oral Ceasar Resulted 09/13/19 14:00 Nasal Nares - Final Complete 09/13/19 14:00 Nasal Nares - Final Complete 09/14/19 03:11 Indwelling Cath Urine Culture - Preliminary Mixed Gram Positive Organism Resulted Intake and Output 09/15/19 09/16/19 19:00 07:00 Intake Total 140 ml Output Total 1400 ml Balance -1260 ml Intake Oral 140 ml Output Urine Total 1400 ml # Voids 3 2 # Bowel Movements 1 Objective PHYSICAL EXAMINATION: GENERAL: The patient is a well-developed and well-nourished female, in no apparent distress. HEENT: Eyes, pupils are equal and responsive to light and accommodation. Extraocular movements are intact. NECK: Supple without lymphadenopathy. CHEST: Lungs are clear to auscultation bilaterally without wheezes or rales. CARDIOVASCULAR: Regular rhythm and rate. S1 and S2 are normal without murmurs, rubs, or gallops. ABDOMEN: Soft, nontender, and nondistended. Positive bowel sounds. No evidence of hepatosplenomegaly. Currently, no rebound or guarding noted. EXTREMITIES: Negative for clubbing, cyanosis, or edema. RECTAL/GENITAL: Not performed. NEUROLOGIC: Cranial nerves II to XII are grossly intact without focal deficits. Motor strength is 5/5 bilaterally. Deep tendon reflexes are 2+ plantar. Assessment/Plan Assessment/Plan ASSESSMENT: This is a 59-year-old female. 1. Fever. 2. Pharyngitis. 3. Tonsillitis. 4. History of gastritis. 5. Vertigo. TREATMENT: 1. Fever/pharyngitis/tonsillitis. A throat culture is pending. An influenza swab was negative as above. The patient has been started empirically on vancomycin and cefepime. Throat Culture=normal ceasar. D/C home on oral cefuroxime 2. Gastritis. The patient is status post treatment for Helicobacter pylori. 3. Vertigo. Continue meclizine as above. Follow up with Primary care physician in 1-2 weeks. Needs referral to ENT and neurology as outpatient. Smith Mcgregor MD Sep 16, 2019 13:59
[2019-09-16] MEDS ORDERED: CEFUROXIME250 MG PO (14:01)
--- NOTE | 2019-09-16 15:00 | NUR ---
Patient is being discharged from medical care as per Dr. Mcgregor's order. Awake, alert and oriented x4. Discharge instructions and medications discussed with patient and family. Patient and family verbalized understanding of After care instructions and discharge. Patient signed patient consent in the medical record for patient destination upon discharge. All medical devices such as IV and ID band were removed. Patient ambulated out with all personal belongings with steady gait. Patient aware to follow up with PCP . OK for patient to be discharge with potassium of 3.4.
--- NOTE | 2019-09-17 16:27 | Discharge Summary ---
Discharge Summary Discharge Summary _ DATE OF ADMISSION: 09/13/2019 DATE OF DISCHARGE: 09/16/2019 DISCHARGED BY: Dr Sommers REASON FOR ADMISSION: 59 years old female with past medical history of gastritis, Helicobacter pylori positive, status post treatment, presented with fever and chills . Symptoms started day prior to presentation to ED. Patient complained of sore throat and bilateral ear congestion. She also reported some dizziness. Patient was febrile tachycardic laboratory work-up revealed leukocytosis stable hemoglobin hematocrit. Potassium 3.4. Stable other electrolytes and renal parameters glucose 140. Chest x-ray revealed no acute cardiopulmonary pathology. CT scan of the neck revealed tonsillar swelling without evidence of abscess. Minimal right maxillary sinus disease. CT of the head revealed no acute intracranial bleeding or mass-effect. In emergency room patient received Decadron and Toradol , started on empiric antibiotics and admitted for further management. HOSPITAL COURSE: Patient admitted to medical surgical floor. Patient was continued on empiric antibiotics. Soft diet provided. Blood cultures were negative. Urine culture revealed mixed gram-positive organisms. Throat culture demonstrated normal oral ceasar with Strep Group G. Supportive care provided. Meclizine was given symptomatically. Fall precaution maintained. DVT prophylaxis provided. Leukocytosis and fevers resolved . Patient clinically stabilized and was ready for discharge home on oral antibiotics to complete the course. FINAL DIAGNOSES: Pharyngitis Tonsillitis Fevers with leukocytosis -resolved History of H. pylori gastritis, status post treatment Vertigo DISCHARGE MEDICATIONS: See Medication Reconciliation list. DISCHARGE INSTRUCTIONS: Patient was discharged home. Follow-up with a primary care provider in 1 to 2 weeks. Patient will need referral to ENT and neurology as outpatient. I have been assigned to dictate discharge summary for this account. I was not involved in the patient's management. Francesca Goodwin NP Sep 17, 2019 16:27
--- NOTE | 2019-09-21 16:22 | NUR ---
CASE MANAGEMENT:[id number] REVIEW 09/14/2019 59 YR OLD FEMALE FROM HOME CC;FEVER SI;SEPSIS. PHARYNGITIS. 102.6 130 20 105/59 98% ON RA WBC 16.0 K+ 3.[address] = TONSILLAR SWELLING CXR = NO ACUTE PROCESS HEAD CT = NEGATIVE IS;IVF NS BOLUS TORADOL IV ONCE DEXAMETHASONE IV ONCE ADMITTED TO TELEMETRY TELE STATUS DCP;FROM HOME CASE MANAGEMENT:REVIEW 09/15/2019 SI;FEVER. PHARYNGITIS. TONSILLITIS. VERTIGO. 99.1 62 118/58 94% ON RA WBC 12.9 IS;VANCOMYCIN IV Q12 HRS CEFEPIME IV Q12 HRS DUO NEB HHN Q4 HRS PRN TELE STATUS DCP;FROM HOME
== END 2019-09-16 15:00 | disposition home or self-care (01) | DRG 113 ==
LOC: EMR 13:22 → 2E 18:28 → EDBEDREQ 09-14 16:14
DX: J03.90 Acute tonsillitis, unspecified (principal); R50.9 Fever, unspecified; K29.70 Gastritis, unspecified, without bleeding; R42 Dizziness and giddiness
CPT/HCPCS: 36415; 70450; 70491; 71045; 80048; 80053; 80202; 81001; 82550; 82553; 83605; 83690; 83880; 84484; 85007; 85025; 86710; 87040; 87070; 87086; 93005; 96361; 96365; 96375; 99285; J2405; J7030